=== PATIENT | male | born 1965 | race Caucasian/White ===

== ENCOUNTER → 2016-12-10 | Day surgery (SDC) | payer OTHER ==
[~2016-12-10] VITALS: Ht 167.6 cm; Wt 69.9 kg
[~2016-12-10] MED LIST: RESTASIS1 EACH OPH
--- NOTE | 2016-12-10 10:21 | Operative Report ---
Operative/Inv Procedure Report Surgery Date: 12/10/16 Name of Procedure: L renal ESWL Pre-Operative Diagnosis: L renal calculus Post-Operative Diagnosis: same Estimated Blood Loss: scant Surgeon/Burn Out Scarfing Operator: CAITIE Sinha MD,GUSTAVO Ramirez Anesthesia: moderate sedation Drains: none Specimens: none Complications: none Condition: stable Operative Indication: This patient originally presented to the emergency room with left flank pain. Noncontrast CT scan showed a 1 cm stone at the left UPJ with obstruction. He underwent an emergent left ureteral stent placement. The stone was pushed back into the kidney during the stent insertion. He is now scheduled for ESWL of his left renal calculus Operative/Procedure Note Note: The patient was taken to the operating room and identified. He is placed in supine position on the lithotripsy table. A timeout was executed appropriately with the patient awake. Intravenous sedation was given. The stone was low-dose localized to the F2 focal point using ultrasound the treatment was then begun. The treatment started at the lowest energy level was gradually increased to maximum. A total of 2500 shocks were given. The patient tolerated the procedure well and as completion was taken to the recovery room in stable condition. Findings: Left renal calculus Discharge Disposition: Same Day Admissions
== END ==
LOC: STS 04:04
DX: N20.0 Calculus of kidney (principal)
CPT/HCPCS: J0690; J2250